=== PATIENT | male | born 1965 | race Caucasian/White ===

== ENCOUNTER 2022-08-22 23:05 | Emergency (ER) | payer OTHER ==
[2022-08-22 23:10] VITALS: BP 103/70; PULSE 62; RESP 16; TEMP 97.9; BMI 26.0
[2022-08-23] MEDS ORDERED: LIDOCAINE 2.5%/PRILOCAINE 2.5% (5 Gram/TUBE) TP ONE (00:19)
== END 2022-08-23 00:48 | disposition home or self-care (01) ==
LOC: FER 23:05
DX: M79.5 Residual foreign body in soft tissue (principal)
CPT/HCPCS: 99282-25